=== PATIENT | male | born 1950 | race Caucasian/White ===

== ENCOUNTER 2024-11-16 12:41 | Inpatient (IN) | payer OTHER ==
[~2024-11-16] VITALS: Ht 188 cm; Wt 105.0 kg
[2024-11-16 13:00] VITALS: PULSE 78; RESP 22; O2SAT 93
[2024-11-16] MEDS: VANCOMYCIN 1GM/200ML PM 200 ML IV ONE (13:19)
--- NOTE | 2024-11-16 13:27 | DVH ---
CLINICAL INFORMATION: 74 years old, Male; syncope. TECHNIQUE: Axial imaging was obtained through the brain without contrast. Coronal and sagittal reform atted images were obtained, reviewed, and stored. Images were reviewed in brain and bone windows. Al l CT scans at this medical facility are performed using dose modulation techniques as appropriate to a performed exam including the following: Automated exposure control was utilized; adjustment of the MA and/or KV according to patient size; and use of iterative reconstruction technique. CTDIvol = 63.6 7 mGy DLP = 1125.99 mGy-cm COMPARISON: None FINDINGS: There is no acute intracranial hemorrhage. No mass effect or midline shift. Moderate to lar ge area of hypoattenuation in the anterior right frontal lobe, likely encephalomalacia. Scattered are as of hypoattenuation are seen in the periventricular and subcortical white matter, which are nonspec ific but most likely sequelae of small vessel ischemic disease. The ventricles and sulci are within n ormal limits in size for age. Basal cisterns are patent. Prominent calcification along the right side of the falx cerebri measuring up to 3.0 x 1.9 x 2.5 cm, possibly physiologic calcification. Calcifie d meningioma not excluded. The calvarium is unremarkable. Paranasal sinuses and mastoid air cells are clear. IMPRESSION: 1. No CT evidence of acute intracranial abnormality. 2. 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 Correlate with cl inical findings. 3. Prominent calcification along the right side of the falx cerebri, may be physiologic calcification . Calcified meningioma not excluded. Correlate with clinical findings. If clinically indicated, MRI without and with contrast could be obtained.
--- NOTE | 2024-11-16 13:34 | DVH ---
CHEST RADIOGRAPH Indication: syncope Technique: Single frontal view of the chest was obtained COMPARISON: None FINDINGS: Lines and Tubes: None Lungs: Clear Pleura: No effusion. No pneumothorax. Cardiomediastinal contours: Unremarkable Bones: Unremarkable IMPRESSION: No acute disease.
[2024-11-16 13:52] LABS: Hematocrit 35.5 % (41.0-53.0); Hemoglobin 12.1 g/dL (13.5-17.5); Mean Corpuscular Hemoglobin 30.9 pg (28.0-32.0); Mean Corpuscular Volume 90.4 fL (80.0-100.0); Nucleated Red Blood Cells % 0.0 %
[2024-11-16 14:03] LABS: Albumin 3.9 g/dL (3.2-4.8); Alkaline Phosphatase 78 U/L (46-116); Anion Gap 13 (5-15); BUN/Creatinine Ratio 23.1 (10.0-20.0); Calcium 9.9 mg/dL (8.7-10.4); Carbon Dioxide 21 mmol/L (20-31); Glucose 91 mg/dL (74-106); Potassium 3.5 mmol/L (3.5-5.1); Sodium 142 mmol/L (136-145); Total Protein 6.8 g/dL (5.7-8.2)
[2024-11-16 14:04] LABS: Alanine Aminotransferase < 9 U/L (7-40); Bilirubin, Total 0.8 mg/dL (0.2-1.0); Blood Urea Nitrogen 31 mg/dL (9-23); Chloride 108 mmol/L (98-107)
[2024-11-16 14:06] LABS: INR 1.43 (0.9-1.15); Partial Thromboplastin Time 35.0 SEC (24.5-34.5); Prothrombin Time 14.6 sec (9.3-11.8)
[2024-11-16] MEDS: CEFEPIME 1GM/ 50ML 50 ML IV ONE (14:25)
[2024-11-16 15:57] LABS: Urine Protein, UAD 1+ (Negative)
--- NOTE | 2024-11-16 16:21 | ED.PDOC ---
History of Present Illness HPI Comments 74-year-old male with a history of hypertension, diabetes, dyslipidemia, thyroid disease and BPH brought in by EMS from home for evaluation of generalized weakness. Family called because the patient had been sitting on the commode when he appeared pale, generally weak and stated he was dizzy. On arrival by E , the patient appeared diaphoretic with a blood pressure of 62/40. As they were assisting him onto their gurney, he had a brief syncopal episode without trauma, then spontaneously regained consciousness a few sec later. EMS administered 1 L of IV fluids, which improved the patient's blood pressure 122/70. Patient recently underwent a left knee surgery for which he had an indwelling Dalal catheter. Patient states the Dalal catheter was removed a week ago, however he has had dysuria. He denies any fever, nausea, vomiting, abdominal pain, hematuria or flank pain. Chief Complaint: Syncope Time Seen by MD: 12:45 Reviewed Notes: Nurses Notes, Forensic Toxicologist Notes Allergies: Coded Allergies: NO KNOWN ALLERGIES (Unverified , 11/16/24) Information Source: Patient, Emergency Med Personnel Mode of Arrival: EMS Past Medical History PAST MEDICAL HISTORY: DM, High Lipids, HTN, Thyroid Past Medical History (Other): BPH Surgical History (Other): Pertinent for recent left knee surgery Family History Family History: Reviewed,noncontributory to illness Social History Smoker: Non-Smoker Alcohol: Denies ETOH Use Drugs: Denies Drug Use Lives In: Home All Other Systems: Reviewed and Negative (Comprehensive systems review obtained and negative except for what is stated in the HPI.) Physical Exam General Appearance: No Apparent Distress HEENT: Other (Pupils and face symmetric. Moist mucous membranes.) Neck: Full Range of Motion, Normal Inspection Respiratory: Lungs Clear, No Accessory Muscle Use, No Respiratory Distress, Normal Breath Sounds Cardiovascular: No Edema, No JVD, Regular Rate/Rhythm Breast Exam: Deferred Gastrointestinal: Non Tender, Soft Genitalia: Deferred Pelvic: Deferred Rectal: Deferred Extremities: Normal range of motion, Non-tender, No pedal edema Neurologic: Alert (Oriented x4), Normal Affect, Normal Mood, Other (No gross focal deficit) Cerebellar Function: NOT DONE Reflexes: NOT DONE Skin: Dry, Pallor, Warm, Other (Left knee anterior midline feeling surgical wound with lotus in place. No erythema, tenderness, edema or discharge) Lymphatic: NOT DONE Was a procedure done? Was a procedure done?: No EKG EKG : Comments Sinus rhythm, rate 83, IN 203, normal QRS interval, QTC 499, left axis deviation, left anterior fascicular block, possible old inferior infarct, nonspecific T change. Differential Dx Considerations may include: Vasovagal, anemia, infection such as UTI, sepsis, electrolyte imbalance, hypovolemia/orthostasis, CVA, TIA, mi, arrhythmia, PE, among others X-Ray, Labs, Meds, VS Vital Signs Date Time Temp Pulse Resp B/P (MAP) Pulse Ox O2 Delivery O2 Flow Rate FiO2 11/16/24 16:00 76 12 133/64 (87) 95 11/16/24 15:00 79 11 134/67 (89) 94 11/16/24 13:00 97.6 78 22 133/65 (87) 93 97.6 11/16/24 13:00 78 22 93 Room Air* 0 21 11/16/24 12:46 97.5 79 18 126/72 (90) 94 97.5 Lab Test 11/16/24 16:40 11/16/24 13:30 11/16/24 13:23 Range/Units Troponin I High Sensitivity Pending 35 </=54 ng/L White Blood Count 10.7 4.4-10.8 10^3/uL Red Blood Count 3.93 L 4.5-5.90 10^6/uL Hemoglobin 12.1 L 13.5-17.5 g/dL Hematocrit 35.5 L 41.0-53.0 % Mean Corpuscular Volume 90.4 80.0-100.0 fL Mean Corpuscular Hemoglobin 30.9 28.0-32.0 pg Mean Corpuscular Hemoglobin Concent 34.1 32.0-36.0 g/dL Red Cell Distribution Width 14.4 H 11.8-14.3 % Platelet Count 415 140-450 10^3/uL Mean Platelet Volume 7.4 6.9-10.8 fL Neutrophils (%) (Auto) 81.2 H 37.0-80.0 % Lymphocytes (%) (Auto) 9.9 L 10.0-50.0 % Monocytes (%) (Auto) 6.0 0.0-12.0 % Eosinophils (%) (Auto) 2.4 0.0-7.0 % Basophils (%) (Auto) 0.5 0.0-2.0 % Neutrophils # (Auto) 8.7 H 1.6-8.6 10 ^3/uL Lymphocytes # (Auto) 1.1 0.4-5.4 10 ^3/uL Monocytes # (Auto) 0.6 0-1.3 10 ^3/uL Eosinophils # (Auto) 0.3 0-0.8 10 ^3/uL Basophils # (Auto) 0.1 0-0.2 10 ^3/uL Nucleated Red Blood Cells 0.0 % Prothrombin Time 14.6 H 9.3-11.8 sec Prothrombin Time INR 1.43 H 0.9-1.15 Activated Partial Thromboplast Time 35.0 H 24.5-34.5 SEC Sodium Level 142 136-145 mmol/L Potassium Level 3.5 3.5-5.1 mmol/L Chloride Level 108 H 98-107 mmol/L Carbon Dioxide Level 21 20-31 mmol/L Anion Gap 13 5-15 Blood Urea Nitrogen 31 H 9-23 mg/dL Creatinine 1.34 H 0.700-1.30 mg/dL Glomerular Filtration Rate Calc 55 >90 mL/min BUN/Creatinine Ratio 23.1 H 10.0-20.0 Serum Glucose 91 74-106 mg/dL Lactic Acid Level 1.4 0.4-2.0 mmol/L Calcium Level 9.9 8.7-10.4 mg/dL Total Bilirubin 0.8 0.2-1.0 mg/dL Aspartate Amino Transferase (AST) 16 13-40 U/L Alanine Aminotransferase (ALT) < 9 7-40 U/L Alkaline Phosphatase 78 46-116 U/L B-Type Natriuretic Peptide 50.61 0-100 pg/mL Total Protein 6.8 5.7-8.2 g/dL Albumin 3.9 3.2-4.8 g/dL Urine Color Light-yellow Yellow Urine Clarity Clear Clear Urine pH 6.5 5.0-9.0 Urine Specific [place] 1.015 1.001-1.035 Urine Protein 1+ H Negative Urine Ketones 1+ H Negative Urine Blood 1+ H Negative /uL Urine Nitrite Negative Negative Urine Bilirubin Negative Negative Urine Urobilinogen 3 H Negative mg/dL Urine Leukocyte Esterase 2+ Negative /uL Urine RBC 36 0 - 3 /hpf Urine Microscopic WBC 34 H 0-3 /HPF Urine Squamous Epithelial Cells Few <5 /hpf Urine Bacteria None seen None Seen /hpf Urine Hyaline Casts Few 0 - 2 /lpf Urine Mucus Few None Seen Urine Glucose 4+ H Normal mg/dL Current Medications Medications (Trade) Dose Ordered Sig/Binta Route Start Time Stop Time Status Last Admin Vancomycin HCl 200 ml @ 200 mls/hr ONCE ONCE IV 11/16/24 13:00 11/16/24 13:59 DC 11/16/24 13:29 Cefepime HCl 50 ml @ 50 mls/hr ONCE ONCE IV 11/16/24 13:45 11/16/24 14:44 DC 11/16/24 14:25 PROCEDURE(s): HWOCT - HEAD WITHOUT CONTRAST REASON: syncope ORDER NUMBER(s): [id number], ACCESSION NUMBER(s): [id number] CLINICAL INFORMATION: 74 years old, Male; syncope. TECHNIQUE: Axial imaging was obtained through the brain without contrast. Coronal and sagittal reformatted images were obtained, reviewed, and stored. Images were reviewed in brain and bone windows. All CT scans at this medical facility are performed using dose modulation techniques as appropriate to a performed exam including the following: Automated exposure control was utilized; adjustment of the MA and/or KV according to patient size; and use of iterative reconstruction technique. CTDIvol = 63.67 mGy DLP = 1125.99 mGy-cm COMPARISON: None FINDINGS: There is no acute intracranial hemorrhage. No mass effect or midline shift. Moderate to large area of hypoattenuation in the anterior right frontal lobe, likely encephalomalacia. Scattered areas of hypoattenuation are seen in the periventricular and subcortical white matter, which are nonspecific but most likely sequelae of small vessel ischemic disease. The ventricles and sulci are within normal limits in size for age. Basal cisterns are patent. Prominent calcification along the right side of the falx cerebri measuring up to 3.0 x 1.9 x 2.5 cm, possibly physiologic calcification. Calcified meningioma not excluded. The calvarium is unremarkable. Paranasal sinuses and mastoid air cells are clear. IMPRESSION: 1. No CT evidence of acute intracranial abnormality. 2. 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 Correlate with clinical findings. 3. Prominent calcification along the right side of the falx cerebri, may be physiologic calcification. Calcified meningioma not excluded. Correlate with clinical findings. If clinically indicated, MRI without and with contrast could be obtained. EDURE(s): CXRP - CHEST PORTABLE REASON: syncope ORDER NUMBER(s): [id number], ACCESSION NUMBER(s): [id number] CHEST RADIOGRAPH Indication: syncope Technique: Single frontal view of the chest was obtained COMPARISON: None FINDINGS: Lines and Tubes: None Lungs: Clear Pleura: No effusion. No pneumothorax. Cardiomediastinal contours: Unremarkable Bones: Unremarkable IMPRESSION: No acute disease. X-Ray, Labs, Meds, VS Comment 74-year-old male with a history of hypertension, diabetes, dyslipidemia, thyroid disease, BPH, recent left knee surgery brought in by EMS from home for evaluation of generalized weakness and a brief syncopal episode Vitals remarkable for oxygen saturation 94% on room air Exam unremarkable Rhythm strip independently interpreted by me: Sinus rhythm, rate 79, no ectopy. CT head IMPRESSION: 1. No CT evidence of acute intracranial abnormality. 2. 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 Correlate with clinical findings. 3. Prominent calcification along the right side of the falx cerebri, may be physiologic calcification. Calcified meningioma not excluded. Correlate with clinical findings. If clinically indicated, MRI without and with contrast could be obtained. Chest x-ray no acute disease CBC unremarkable, metabolic panel remarkable for BUN 31, creatinine 1.34, BNP and serial troponins negative, lactate normal, UA abnormal consistent with UTI Patient treated with the following in the ED: Vancomycin per pharmacy IV, cefepime 2 g IV On re-evaluation, patient is resting comfortably with stable vitals. There have been no new neurologic changes during his stay. Plan is to admit the patient for IV antibiotics and neuro evaluation. Time of 1ST Reevaluation: 16:00 Reevaluation 1ST: Improved Patient Education/Counseling: Diagnosis, Treatment Family Education/Counseling: No Family Present SEPSIS Sepsis Screen Date sepsis recognized/suspect: Nov 16, 2024 Time Sepsis recognized/suspect: 1246 Recent Procedure: Yes On Antibiotic Therapy: Yes Respiratory Rate >20: No Heart Rate >90: No Temp<36 C (96.8 F) or >38.3 C: No SBP <90 or MAP <65 mmHG: No New Acute Mental Status Change: No Is the patient on CPAP, BIPAP,: No SEPSIS EXCLUSION NOTE: Sepsis Exclusion Note: Patient presents with SIRS criteria, but the SIRS response is attributed to [ UTI, hypovolemia]. Sepsis bundle is not initiated at this time, due to this reason. Further management will focus on the treatment of the above condition (s). Physician Orders Chest Portable (11/16/24 13:00) Accucheck (11/16/24 12:46) Blood Culture (11/16/24 12:46) Cefepime 1gm/ 50ml (Maxipime 1gm/50ml) (11/16/24 22:00) Notify Md If Map <65 Or Bp<90 (11/16/24 12:46) If Map<65 Start Vasopressor (11/16/24 12:46) Sepsis Reassesment After Fluid (11/16/24 13:46) Head Without Contrast (11/16/24 12:57) Troponin-I Hs (11/16/24 15:57) Electrocardigram (11/16/24 16:13) Vital Signs Date Time Temp Pulse Resp B/P (MAP) Pulse Ox O2 Delivery O2 Flow Rate FiO2 11/16/24 16:00 76 12 133/64 (87) 95 11/16/24 15:00 79 11 134/67 (89) 94 11/16/24 13:00 97.6 78 22 133/65 (87) 93 97.6 11/16/24 13:00 78 22 93 Room Air* 0 21 11/16/24 12:46 97.5 79 18 126/72 (90) 94 97.5 Laboratory Tests Test 11/16/24 13:30 Lactic Acid Level 1.4 mmol/L (0.4-2.0) White Blood Count 10.7 10^3/uL (4.4-10.8) Medications Medications Dose Ordered Sig/Binta Route Start Time Stop Time Status Last Admin Dose Admin Cefepime HCl 50 ml @ 50 mls/hr ONCE ONCE IV 11/16/24 13:45 11/16/24 14:44 DC 11/16/24 14:25 Vancomycin HCl 200 ml @ 200 mls/hr ONCE ONCE IV 11/16/24 13:00 11/16/24 13:59 DC 11/16/24 13:29 Departure 1 Departure Time of Disposition: 16:20 Impression: Primary Impression: Syncope Additional Impression: UTI (urinary tract infection) Disposition: ADMITTED INPATIENT Admit to: Tele Condition: Guarded Critical Care Note Critical Care Time?: No Stability Stability form required: No Heart Score Heart Score: Heart Score Response (Comments) Value History N/A 0 EKG N/A 0 Age N/A 0 Risk Factors N/A 0 Troponin N/A 0 Total 0 NIRALI CALERO MD Nov 16, 2024 16:21
[2024-11-16] MEDS: HYDROcodone-ACET 5/325MG TAB PO ONE (18:20)
[2024-11-16] MEDS: PHENAZOPYRIDINE HCL 100 MG TAB PO ONE (18:21)
--- NOTE | 2024-11-16 19:14 | ECG ---
[facility] Test Date: 2024-11-16 Test Time: 16:44:29 Pat Name: BOUCHRA AREVALO Department: ED Room: [facility] Gender: M Microbiological Analyst: LEXX : 1950 Requested By: NIRALI PATTON Order Number: [id number] Reading MD: Ian Antony Measurements Intervals [place] Rate: 83 P: 58 NH: 203 QRS: -48 QRSD: 113 T: 14 QT: 424 QTc: 499 Interpretive Statements Sinus rhythm Left anterior fascicular block Low voltage, precordial leads Abnormal R-wave progression, late transition Borderline prolonged QT interval Baseline wander in lead(s) V3,V4,V5,V6 Electronically Signed On 11-23-2024 15:31:59 PDT by Ian Antony Please click the below link to view image of tracing.
[2024-11-16] MEDS ORDERED: DEXTROSE (50%) 50ML SYRG IV PRN (19:15)
[2024-11-16 20:03] VITALS: PULSE 88; RESP 22; O2SAT 98
[2024-11-16 21:19] VITALS: BP 155/84; PULSE 89; RESP 18; RESP 20; TEMP 97.6; O2SAT 94
--- NOTE | 2024-11-16 21:55 | DVHHP2 ---
History of Present Illness Reason for Visit: Dizziness History of Present Illness 74-year-old male presents for evaluation of dizziness. Patient reports developing dizziness while using the restroom today in the morning. When he tried to stand up he felt dizzy so he said down again and his called EMS. Patient had a blood pressure in the 60s in the field. After bolus of normal saline his blood pressure normalized to the 120s. Currently he denies dizziness, shortness for breath or chest pain. No fever or chills. No dysuria or hematuria. Past Medical History Hypertension, thyroid, dyslipidemia, diabetes mellitus, BPH Past Surgical History Left knee surgery Family History Noncontributory Smoke: No ALCOHOL: none Drugs: None Lives: with Family Review of Systems Review of Systems Review of systems are currently negative otherwise addressed in HPI. Allergies: Coded Allergies: NO KNOWN ALLERGIES (Unverified , 11/16/24) Medications Current Medications Medications Dose Ordered Sig/Binta Route Start Time Stop Time Status Last Admin Dose Admin Phenazopyridine HCl 100 mg BID PO 11/17/24 10:00 Ceftriaxone Sodium 50 ml @ 100 mls/hr DAILY@09 IV 11/17/24 09:00 Diagnostic Test (Pha) 1 strip ACHS 11/16/24 22:00 Insulin Human Regular ACHS SC 11/16/24 22:00 Dextrose 50 ml UD PRN IV 11/16/24 19:15 Ondansetron HCl 4 mg Q4HP PRN IV 11/16/24 19:15 Acetaminophen 650 mg Q6HP PRN PO 11/16/24 19:15 Rivaroxaban 10 mg DAILY PO 11/17/24 10:00 Levothyroxine Sodium 50 mcg QAM@0600 PO 11/17/24 06:00 Atorvastatin Calcium 40 mg HS PO 11/16/24 22:00 Amlodipine Besylate 10 mg DAILY PO 11/17/24 10:00 Exam Vital Signs Vital Signs Date Time Temp Pulse Resp B/P (MAP) Pulse Ox O2 Delivery O2 Flow Rate FiO2 11/16/24 20:08 142/86 (104) 11/16/24 20:03 88 22 98 Room Air* 0 21 11/16/24 19:51 98.1 98.1 Exam Gen: 74-year-old male in mild distress Skin: Warm, dry, normal color and texture, no rash. HEENT: Normocephalic atraumatic, mucous membranes moist and pink. Neck: Cervical and supraclavicular nodes normal without enlargement, trachea is midline, thyroid gland is normal without masses. Pulmonary: Clear to auscultation and percussion bilaterally. Cardiac: Regular rate and rhythm. No murmur Abdomen: Soft, nontender, nondistended, bowel sounds present all 4 quadrants, no guarding, no rigidity, no organomegaly. Extremities: No cyanosis, clubbing, no edema Neuro: Cranial nerves II through XII grossly intact, normal affect and speech, no focal motor deficits. Labs/Xrays ORDERING PHYSICIAN: NIRALI CALERO MD PROCEDURE(s): HWOCT - HEAD WITHOUT CONTRAST REASON: syncope ORDER NUMBER(s): [id number], ACCESSION NUMBER(s): [id number] CLINICAL INFORMATION: 74 years old, Male; syncope. TECHNIQUE: Axial imaging was obtained through the brain without contrast. Coronal and sagittal reformatted images were obtained, reviewed, and stored. Images were reviewed in brain and bone windows. All CT scans at this medical facility are performed using dose modulation techniques as appropriate to a performed exam including the following: Automated exposure control was utilized; adjustment of the MA and/or KV according to patient size; and use of iterative reconstruction technique. CTDIvol = 63.67 mGy DLP = 1125.99 mGy-cm COMPARISON: None FINDINGS: There is no acute intracranial hemorrhage. No mass effect or midline shift. Moderate to large area of hypoattenuation in the anterior right frontal lobe, likely encephalomalacia. Scattered areas of hypoattenuation are seen in the periventricular and subcortical white matter, which are nonspecific but most likely sequelae of small vessel ischemic disease. The ventricles and sulci are within normal limits in size for age. Basal cisterns are patent. Prominent calcification along the right side of the falx cerebri measuring up to 3.0 x 1.9 x 2.5 cm, possibly physiologic calcification. Calcified meningioma not excluded. The calvarium is unremarkable. Paranasal sinuses and mastoid air cells are clear. IMPRESSION: 1. No CT evidence of acute intracranial abnormality. 2. 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 Correlate with clinical findings. 3. Prominent calcification along the right side of the falx cerebri, may be physiologic calcification. Calcified meningioma not excluded. Correlate with clinical findings. If clinically indicated, MRI without and with contrast could be obtained. RING PHYSICIAN: NIRALI CALERO MD PROCEDURE(s): CXRP - CHEST PORTABLE REASON: syncope ORDER NUMBER(s): [id number], ACCESSION NUMBER(s): [id number] CHEST RADIOGRAPH Indication: syncope Technique: Single frontal view of the chest was obtained COMPARISON: None FINDINGS: Lines and Tubes: None Lungs: Clear Pleura: No effusion. No pneumothorax. Cardiomediastinal contours: Unremarkable Bones: Unremarkable IMPRESSION: No acute disease. Labs Test 11/16/24 20:46 11/16/24 16:40 11/16/24 13:30 11/16/24 13:23 Range/Units POC Glucose 80 70-106 mg/dl Troponin I High Sensitivity 27 </=54 ng/L White Blood Count 10.7 4.4-10.8 10^3/uL Red Blood Count 3.93 L 4.5-5.90 10^6/uL Hemoglobin 12.1 L 13.5-17.5 g/dL Hematocrit 35.5 L 41.0-53.0 % Mean Corpuscular Volume 90.4 80.0-100.0 fL Mean Corpuscular Hemoglobin 30.9 28.0-32.0 pg Mean Corpuscular Hemoglobin Concent 34.1 32.0-36.0 g/dL Red Cell Distribution Width 14.4 H 11.8-14.3 % Platelet Count 415 140-450 10^3/uL Mean Platelet Volume 7.4 6.9-10.8 fL Neutrophils (%) (Auto) 81.2 H 37.0-80.0 % Lymphocytes (%) (Auto) 9.9 L 10.0-50.0 % Monocytes (%) (Auto) 6.0 0.0-12.0 % Eosinophils (%) (Auto) 2.4 0.0-7.0 % Basophils (%) (Auto) 0.5 0.0-2.0 % Neutrophils # (Auto) 8.7 H 1.6-8.6 10 ^3/uL Lymphocytes # (Auto) 1.1 0.4-5.4 10 ^3/uL Monocytes # (Auto) 0.6 0-1.3 10 ^3/uL Eosinophils # (Auto) 0.3 0-0.8 10 ^3/uL Basophils # (Auto) 0.1 0-0.2 10 ^3/uL Nucleated Red Blood Cells 0.0 % Prothrombin Time 14.6 H 9.3-11.8 sec Prothrombin Time INR 1.43 H 0.9-1.15 Activated Partial Thromboplast Time 35.0 H 24.5-34.5 SEC Sodium Level 142 136-145 mmol/L Potassium Level 3.5 3.5-5.1 mmol/L Chloride Level 108 H 98-107 mmol/L Carbon Dioxide Level 21 20-31 mmol/L Anion Gap 13 5-15 Blood Urea Nitrogen 31 H 9-23 mg/dL Creatinine 1.34 H 0.700-1.30 mg/dL Glomerular Filtration Rate Calc 55 >90 mL/min BUN/Creatinine Ratio 23.1 H 10.0-20.0 Serum Glucose 91 74-106 mg/dL Lactic Acid Level 1.4 0.4-2.0 mmol/L Calcium Level 9.9 8.7-10.4 mg/dL Total Bilirubin 0.8 0.2-1.0 mg/dL Aspartate Amino Transferase (AST) 16 13-40 U/L Alanine Aminotransferase (ALT) < 9 7-40 U/L Alkaline Phosphatase 78 46-116 U/L B-Type Natriuretic Peptide 50.61 0-100 pg/mL Total Protein 6.8 5.7-8.2 g/dL Albumin 3.9 3.2-4.8 g/dL Urine Color Light-yellow Yellow Urine Clarity Clear Clear Urine pH 6.5 5.0-9.0 Urine Specific [place] 1.015 1.001-1.035 Urine Protein 1+ H Negative Urine Ketones 1+ H Negative Urine Blood 1+ H Negative /uL Urine Nitrite Negative Negative Urine Bilirubin Negative Negative Urine Urobilinogen 3 H Negative mg/dL Urine Leukocyte Esterase 2+ Negative /uL Urine RBC 36 0 - 3 /hpf Urine Microscopic WBC 34 H 0-3 /HPF Urine Squamous Epithelial Cells Few <5 /hpf Urine Bacteria None seen None Seen /hpf Urine Hyaline Casts Few 0 - 2 /lpf Urine Mucus Few None Seen Urine Glucose 4+ H Normal mg/dL SEPSIS Sepsis Screen Date sepsis recognized/suspect: Nov 16, 2024 Time Sepsis recognized/suspect: 2006 Recent Procedure: No On Antibiotic Therapy: No Respiratory Rate >20: No Heart Rate >90: No Temp<36 C (96.8 F) or >38.3 C: No SBP <90 or MAP <65 mmHG: No New Acute Mental Status Change: No Is the patient on CPAP, BIPAP,: No Physician Orders Ceftriaxone 1gm/50ml D5w (Rocephin) (11/17/24 09:00) Basic Metabolic Panel (11/17/24 04:00) Glucose Blood (Accu-Chek Comfort Curve T (11/16/24 22:00) Insulin R (Human) (Insulin R) (11/16/24 22:00) Dextrose 50% Syringe (11/16/24 19:15) Admit (11/16/24 19:04) Ondansetron Hcl (Zofran) (11/16/24 19:15) Complete Blood Count (11/17/24 04:00) Cardiac Diet-2gna,Lofat,Lochol (11/17/24 Breakfast) Condition: Stable (11/16/24 19:04) Acetaminophen Tablet (Tylenol Tablet) (11/16/24 19:15) Bedrest With Bathroom Privileg (11/16/24 19:04) Urine Bacterial Culture (11/16/24 19:04) Rivaroxaban Tablet (Xarelto Tablet) (11/17/24 10:00) Levothyroxine Tablet (Synthroid Tablet) (11/17/24 06:00) Atorvastatin (Lipitor) (11/16/24 22:00) Phenazopyridine Hcl Tablet (Pyridium Tab (11/17/24 10:00) Amlodipine Tablet (Norvasc Tablet) (11/17/24 10:00) Vital Signs Date Time Temp Pulse Resp B/P (MAP) Pulse Ox O2 Delivery O2 Flow Rate FiO2 11/16/24 20:08 142/86 (104) 11/16/24 20:03 88 22 98 Room Air* 0 21 11/16/24 19:51 98.1 88 20 167/105 (125) 98.1 11/16/24 18:00 76 13 141/72 (95) 95 11/16/24 16:44 83 11/16/24 16:00 76 12 133/64 (87) 95 11/16/24 15:00 79 11 134/67 (89) 94 Laboratory Tests Test 11/16/24 13:30 Lactic Acid Level 1.4 mmol/L (0.4-2.0) White Blood Count 10.7 10^3/uL (4.4-10.8) Medications Medications Dose Ordered Sig/Binta Route Start Time Stop Time Status Last Admin Dose Admin Acetaminophen/ Hydrocodone Bitart 1 tab ONCE ONCE PO 11/16/24 18:30 11/16/24 18:31 DC 11/16/24 18:20 1 TAB Cefepime HCl 50 ml @ 50 mls/hr ONCE ONCE IV 11/16/24 13:45 11/16/24 14:44 DC 11/16/24 14:25 50 MLS/HR Phenazopyridine HCl 200 mg ONCE ONCE PO 11/16/24 18:30 11/16/24 18:31 DC 11/16/24 18:21 200 MG Vancomycin HCl 200 ml @ 200 mls/hr ONCE ONCE IV 11/16/24 13:00 11/16/24 13:59 DC 11/16/24 13:29 200 MLS/HR Assessment/Plan Assessment/Plan Assessment Symptomatic hypotension Urinary tract infection Diabetes mellitus Plan Admit the patient to [facility] to the hospitalist Hold antihypertensives Resume rest of medications from home Urine bacterial culture pending Rocephin Continue treatment per orders. Plan discussed with: Patient My Orders Orders - KELLY PURCELL AGACNP Procedure Category Date Status Time Ceftriaxone 1gm/50ml PHA 11/17/24 In Process D5w (Rocephin) 09:00 Basic Metabolic Panel LAB 11/17/24 Verified 04:00 Glucose Blood PHA 11/16/24 In Process (Accu-Chek Comfort 22:00 Insulin R (Human) PHA 11/16/24 In Process (Insulin R) 22:00 Dextrose 50% Syringe PHA 11/16/24 In Process 19:15 Admit ADMIT 11/16/24 Transmitted 19:04 Ondansetron Hcl PHA 11/16/24 In Process (Zofran) 19:15 Complete Blood Count LAB 11/17/24 Verified 04:00 Cardiac DIET 11/17/24 Transmitted Diet-2gna,Lofat,Lochol Breakfast Condition: Stable CHETNA 11/16/24 In Process 19:04 Acetaminophen Tablet PHA 11/16/24 In Process (Tylenol Tablet) 19:15 Bedrest With Bathroom CHETNA 11/16/24 In Process Privileg 19:04 Urine Bacterial LAUREN 11/16/24 In Process Culture 19:04 Rivaroxaban Tablet PHA 11/17/24 In Process (Xarelto Tablet) 10:00 Levothyroxine Tablet PHA 11/17/24 In Process (Synthroid Tablet) 06:00 Atorvastatin (Lipitor) PHA 11/16/24 In Process 22:00 Phenazopyridine Hcl PHA 11/17/24 In Process Tablet (Pyridium Tab 10:00 Amlodipine Tablet PHA 11/17/24 In Process (Norvasc Tablet) 10:00 Date of Service: Nov 16, 2024 Billing Provider: KELLY PURCELL Common Visit Codes: [id number] INP/OBS CARE (HIGH) KELLY PURCELL Nov 16, 2024 21:55
[2024-11-16] MEDS: InsuLIN REG 1unit/0.01ml Soln (100units/ml) SC SCH (22:00)
[2024-11-16] MEDS ORDERED: CEFEPIME 1GM/ 50ML 50 ML IV SCH (22:00)
[2024-11-16] MEDS: ACCU-CHEK COMFORT CURVE STRIP VI SCH (23:12)
[2024-11-16] MEDS ORDERED: ACET-1304 PO (23:25)
[2024-11-16] MEDS ORDERED: LEVO25TA2 PO (23:25)
[2024-11-16] MEDS ORDERED: LISI2.5T47 PO (23:25)
[2024-11-16] MEDS ORDERED: ATOR20TA50 PO (23:25)
[2024-11-16] MEDS: ACETAMINOPHEN 325 MG TAB PO PRN (23:56)
[2024-11-16] MEDS: ATORVASTATIN 20 MG TAB PO SCH (23:56)
[2024-11-17] VITALS (9 sets, daily range): BP systolic 69–162; BP diastolic 49–104; PULSE 61–138; RESP 14–20; TEMP 97.5–99.1; O2SAT 84–96
[2024-11-17] MEDS: LEVOTHYROXINE SODIUM 50 MCG TAB PO SCH (05:58)
[2024-11-17 06:25] LABS: Potassium 3.6 mmol/L (3.5-5.1); Sodium 143 mmol/L (136-145)
[2024-11-17 06:26] LABS: Anion Gap 15 (5-15)
[2024-11-17 06:27] LABS: Calcium 10.0 mg/dL (8.7-10.4)
[2024-11-17 06:29] LABS: Hematocrit 37.9 % (41.0-53.0); Hemoglobin 12.3 g/dL (13.5-17.5); Mean Corpuscular Hemoglobin 29.5 pg (28.0-32.0); Mean Corpuscular Volume 91.2 fL (80.0-100.0); Nucleated Red Blood Cells % 0.0 %
[2024-11-17 06:31] LABS: BUN/Creatinine Ratio 21.5 (10.0-20.0)
[2024-11-17 06:34] LABS: Blood Urea Nitrogen 26 mg/dL (9-23); Carbon Dioxide 19 mmol/L (20-31); Chloride 109 mmol/L (98-107)
[2024-11-17 07:02] LABS: Glucose 80 mg/dL (74-106)
[2024-11-17] MEDS: PHENAZOPYRIDINE HCL 100 MG TAB PO SCH (08:42)
[2024-11-17] MEDS: RIVAROXABAN 10 MG TAB PO SCH (08:42)
[2024-11-17] MEDS: cefTRIAXone 1GM/50ML D5W 50 ML IV SCH (08:44)
--- NOTE | 2024-11-17 09:33 | DVHPNRES ---
Progress Note Date Seen: Nov 17, 2024 Resident Creating Document: TASHI ALCARAZ RESIDENT Medical Necessity Reason Pt with a Central, PICC or Fol: Yes The following are medically ne: Dalal Catheter Subjective Review of Systems Diogo Hurton this is a 74-year-old male with past medical history of diabetes mellitus, hypertension, left knee replacement, history of polio as a child. He came to the emergency department with a chief complaint of dizziness and loss of consciousness. Yesterday in the morning when he went to the bathroom he started feeling dizzy. He complains everything around him looked hazy. In the restroom he felt more dizzy and EMT was called. He lost consciousness eventually and can not remember the episode clearly. Last week he reports undergoing left knee replacement for pain due to osteoarthritis. He reports, in a comprehensive cardiac evaluation done before the surgery showed atherosclerotic stenosis in one of the coronary arteries. A urinary catheter was left in place. He started experiencing burning micturition 2 days ago. No associated fever, nausea, vomiting, pain. He has constipation on and off for which he uses laxatives. He also has urge incontinence, which progressed to incontinence with this episode of UTI. His vitals show increased respiratory rate. Past history: Polio as a child leading to right hand tremor and incoordination. Tried burning himself and got 2nd grade lim when he was in 8th grade. Past surgical history: Cataract bilaterally, lens replacement surgery. Knee replacement surgery for osteoarthritis. Personal history occasional alcohol use. Lives in mobile house with . Family history: Cancer-grandmothers with liver, bone, leukemia. Hypertension, dementia in mother. ROS: Constitutional: Denies weight loss, fever and chills. HEENT: Denies changes in vision and hearing. Respiratory: Denies shortness of breath and cough Cardiovascular: Denies chest discomfort or palpitations GI: Constipation off and on. Denies abdominal pain, nausea, vomiting and diarrhea. : Burning micturition, incontinence. Musculoskeletal: Denies myalgias and joint pain Skin: Denies rash and pruritus. Neurological: Dizziness, loss of consciousness Objective vital signs Vital Sign Date Time Temp Pulse Resp B/P (MAP) Pulse Ox O2 Delivery O2 Flow Rate FiO2 11/17/24 05:00 97.5 97 19 131/78 (95) 94 97.5 11/16/24 21:19 Room Air* 0 21 Total Intake and Output 11/16/24 11/16/24 11/17/24 15:00 23:00 07:00 Intake Total 200 ml 50 ml 200 ml Balance 200 ml 50 ml 200 ml medications Current Medications Medications Dose Ordered Sig/Binta Route Start Time Stop Time Status Last Admin Dose Admin Phenazopyridine HCl 100 mg BID PO 11/17/24 10:00 11/17/24 08:42 100 MG Ceftriaxone Sodium 50 ml @ 100 mls/hr DAILY@09 IV 11/17/24 09:00 11/17/24 08:44 100 MLS/HR Diagnostic Test (Pha) 1 strip ACHS 11/16/24 22:00 11/17/24 05:58 1 STRIP Insulin Human Regular ACHS SC 11/16/24 22:00 Dextrose 50 ml UD PRN IV 11/16/24 19:15 Ondansetron HCl 4 mg Q4HP PRN IV 11/16/24 19:15 Acetaminophen 650 mg Q6HP PRN PO 11/16/24 19:15 11/16/24 23:56 650 MG Rivaroxaban 10 mg DAILY PO 11/17/24 10:00 11/17/24 08:42 10 MG Levothyroxine Sodium 50 mcg QAM@0600 PO 11/17/24 06:00 11/17/24 05:58 50 MCG Atorvastatin Calcium 40 mg HS PO 11/16/24 22:00 11/16/24 23:56 40 MG Amlodipine Besylate 10 mg DAILY PO 11/17/24 10:00 Examination General: Patient alert and oriented in person, place and time. Patient following commands. HEENT: Normocephalic, atraumatic, moist mucous membranes Respiratory/pulmonary: Clear lungs bilaterally, vesicular murmurs present in almost all lung arroyo, no associated crackles or wheezes. Cardiovascular: Normal heart sounds S1 and S2 with no associated murmurs Abdomen: Liver palpable below the costal margin. No palpable masses. Extremities: Left knee- stitches from knee replacement surgery. Surgical incision site clean, dry, no sign of infection. Peripheral Pulses: 3+ Radial (R). 3+ Radial (L). 3+ Dorsalis pedis (R). 3+ Dorsalis pedis(L) Skin: No rashes or pruritus, there is no sacral edema present at this time. Neurological: Right hand tremor. Power normal. : Dalal catheter in place, draining dark colored urine. laboratory and microbiology Laboratory Tests 11/17/24 05:45 Test 11/17/24 05:45 Range/Units Serum Glucose 80 74-106 mg/dL Problem List/Assessment/Plan Problem List/Assessment/Plan #Syncopal episode due to below #Postural hypotension #Orthostatic hypotension possible #Iatrogenic hypotension #Postural orthostasis -Troponins negative -CT head shows encephalomalacia in the right frontal lobe, may be sequelae of chronic infarct. Correlate with clinical findings. Prominent calcification along the right side of the falx cerebri, may be physiologic calcification. Calcified meningioma not excluded. Correlate with clinical findings. If clinically indicated, MRI without and with contrast could be obtained. -Chest x-ray WNL -EKG shows: Left anterior fascicular block, abnormal R-wave progression, borderline prolonged QT interval -Orthostatic vitals:- Lying down 148/80 Sitting 107/75 Standing 69/49 -Start IV fluids. Amlodipine held, targeting SBP 150 #Ruling out arrhythmia -Patient is started on tele -We will do echo to rule out structural causes #Possible hypotension due to acute complicated cystitis -U/a shows: WBC 36, U. glucose, protein, ketone, blood 1+ -Increased BUN, BUN-creatinine ratio -Continue IV ceftriaxone -Continue Zofran #Hypertension #Hypothyroidism -Taking levothyroxine -Targeting SBP 150 in context of orthostatic hypotension #BPH #Diabetes mellitus -We will continue holding Farxiga -Started on sliding scale insulin Goals of care discussed with the patient at bedside for more than 35 minute Full code Plan discussed with Dr. Terrazas Plan discussed with: Patient TASHI ALCARAZ RESIDENT Nov 17, 2024 09:33
[2024-11-17] MEDS: LACTATED RINGER'S 1,000 ML IV SCH (12:45)
[2024-11-17] MEDS: LACTATED RINGER'S 1,000 ML IV ONE (15:08)
[2024-11-17] MEDS ORDERED: NYSTATIN TOPICAL POWDER 15GM TOP SCH (22:00)
[2024-11-18 00:47] VITALS: BP 115/83; PULSE 88; RESP 17; TEMP 98.4; O2SAT 91
[2024-11-18 05:00] VITALS: BP_SYST 115; BP_SYST 149; BP_SYST 166; BP_DIAS 63; BP_DIAS 83; BP_DIAS 87; PULSE 95; RESP 18; TEMP 97.6; O2SAT 95
[2024-11-18 07:22] LABS: Hematocrit 34.7 % (41.0-53.0); Hemoglobin 11.9 g/dL (13.5-17.5); Mean Corpuscular Hemoglobin 30.9 pg (28.0-32.0); Mean Corpuscular Volume 90.1 fL (80.0-100.0); Nucleated Red Blood Cells % 0.0 %
[2024-11-18 07:40] LABS: Albumin 3.9 g/dL (3.2-4.8); Alkaline Phosphatase 80 U/L (46-116); Anion Gap 15 (5-15); BUN/Creatinine Ratio 20.8 (10.0-20.0); Bilirubin, Total 0.9 mg/dL (0.2-1.0); Blood Urea Nitrogen 21 mg/dL (9-23); Calcium 10.1 mg/dL (8.7-10.4); Glucose 79 mg/dL (74-106); Sodium 143 mmol/L (136-145); Total Protein 6.7 g/dL (5.7-8.2)
[2024-11-18 07:50] LABS: Alanine Aminotransferase < 9 U/L (7-40); Carbon Dioxide 19 mmol/L (20-31); Chloride 109 mmol/L (98-107); Potassium 3.1 mmol/L (3.5-5.1)
[2024-11-18] MEDS: ONDANSETRON HCL 4 MG/2 ML VIAL IV PRN (08:23)
[2024-11-18] MEDS: POTASSIUM EFFERVESENT TAB 25 MEQ PO ONE (08:45)
[2024-11-18 09:00] VITALS: BP_SYST 127; BP_SYST 154; BP_DIAS 69; BP_DIAS 84; PULSE 74; PULSE 81; RESP 18; RESP 20; TEMP 98.7; O2SAT 94
[2024-11-18 13:00] VITALS: BP 130/79; PULSE 91; RESP 18; TEMP 98.2; O2SAT 94
[2024-11-18] MEDS ORDERED: CEPH500T PO (14:22)
[2024-11-18 17:00] VITALS: BP_SYST 154; BP_SYST 99; BP_DIAS 44; BP_DIAS 79; PULSE 66; PULSE 70; RESP 20; TEMP 97.8; TEMP 98.6; O2SAT 90; O2SAT 96
--- NOTE | 2024-11-18 17:23 | DVHPNRES ---
Progress Note Date Seen: Nov 18, 2024 Resident Creating Document: TASHI ALCARAZ RESIDENT Medical Necessity Reason Pt with a Central, PICC or Fol: Yes The following are medically ne: Dalal Catheter Subjective Review of Systems [place] Bonnyman this is a 74-year-old male with past medical history of diabetes mellitus, hypertension, left knee replacement, history of polio as a child. He came to the emergency department with a chief complaint of dizziness and loss of consciousness. Yesterday in the morning when he went to the bathroom he started feeling dizzy. He complains everything around him looked hazy. In the restroom he felt more dizzy and EMT was called. He lost consciousness eventually and can not remember the episode clearly. Last week he reports undergoing left knee replacement for pain due to osteoarthritis. He reports, in a comprehensive cardiac evaluation done before the surgery showed atherosclerotic stenosis in one of the coronary arteries. A urinary catheter was left in place. He started experiencing burning micturition 2 days ago. No associated fever, nausea, vomiting, pain. He has constipation on and off for which he uses laxatives. He also has urge incontinence, which progressed to incontinence with this episode of UTI. His vitals show increased respiratory rate. Past history: Polio as a child leading to right hand tremor and incoordination. Tried burning himself and got 2nd grade lim when he was in 8th grade. Past surgical history: Cataract bilaterally, lens replacement surgery. Knee replacement surgery for osteoarthritis. Personal history occasional alcohol use. Lives in mobile house with . Family history: Cancer-grandmothers with liver, bone, leukemia. Hypertension, dementia in mother. 11/18/24: Patient examined at bedside today. He had an episode of dizziness when giving orthostatic vitals. Today his orthostatic vitals are positive for orthostatic hypotension. We will continue to evaluate and manage him. ROS: Constitutional: Denies weight loss, fever and chills. HEENT: Denies changes in vision and hearing. Respiratory: Denies shortness of breath and cough Cardiovascular: Denies chest discomfort or palpitations GI: Constipation off and on. Denies abdominal pain, nausea, vomiting and diarrhea. : Burning micturition, incontinence. Musculoskeletal: Denies myalgias and joint pain Skin: Denies rash and pruritus. Neurological: Dizziness, loss of consciousness Objective vital signs Vital Sign Date Time Temp Pulse Resp B/P (MAP) Pulse Ox O2 Delivery O2 Flow Rate FiO2 11/18/24 17:00 97.8 66 20 154/79 (104) 96 97.8 11/18/24 07:52 Room Air* 0 21 Total Intake and Output 11/17/24 11/17/24 11/18/24 15:00 23:00 07:00 Intake Total 50 ml 650 ml Output Total 1300 ml Balance 50 ml -650 ml medications Current Medications Medications Dose Ordered Sig/Binta Route Start Time Stop Time Status Last Admin Dose Admin Phenazopyridine HCl 100 mg BID PO 11/17/24 10:00 11/18/24 08:22 100 MG Ceftriaxone Sodium 50 ml @ 100 mls/hr DAILY@09 IV 11/17/24 09:00 11/18/24 08:23 100 MLS/HR Diagnostic Test (Pha) 1 strip ACHS 11/16/24 22:00 11/18/24 11:56 1 STRIP Insulin Human Regular ACHS SC 11/16/24 22:00 Dextrose 50 ml UD PRN IV 11/16/24 19:15 Ondansetron HCl 4 mg Q4HP PRN IV 11/16/24 19:15 11/18/24 08:23 4 MG Acetaminophen 650 mg Q6HP PRN PO 11/16/24 19:15 11/16/24 23:56 650 MG Levothyroxine Sodium 50 mcg QAM@0600 PO 11/17/24 06:00 11/18/24 05:56 50 MCG Atorvastatin Calcium 40 mg HS PO 11/16/24 22:00 11/17/24 21:25 40 MG Amlodipine Besylate 10 mg DAILY PO 11/17/24 10:00 Lactated Ringer's 1,000 ml @ 75 mls/hr [id number] IV 11/17/24 12:45 Examination General: Patient alert and oriented in person, place and time. Patient following commands. HEENT: Normocephalic, atraumatic, moist mucous membranes Respiratory/pulmonary: Clear lungs bilaterally, vesicular murmurs present in almost all lung arroyo, no associated crackles or wheezes. Cardiovascular: Normal heart sounds S1 and S2 with no associated murmurs Abdomen: Liver palpable below the costal margin. No palpable masses. Extremities: Left knee- stitches from knee replacement surgery. Surgical incision site clean, dry, no sign of infection. Peripheral Pulses: 3+ Radial (R). 3+ Radial (L). 3+ Dorsalis pedis (R). 3+ Dorsalis pedis(L) Skin: No rashes or pruritus, there is no sacral edema present at this time. Neurological: Right hand tremor. Power normal. : Dalal catheter in place, draining dark colored urine. laboratory and microbiology Laboratory Tests 11/18/24 05:47 Test 11/18/24 05:47 Range/Units Serum Glucose 79 74-106 mg/dL Microbiology Date/Time Source Procedure Growth Status 11/16/24 13:30 Blood Blood Culture - Preliminary NO GROWTH AFTER 48 HOURS OF INCUBATION. Resulted 11/16/24 13:23 Voided Urine Urine Culture - Preliminary Resulted Problem List/Assessment/Plan Problem List/Assessment/Plan #Syncopal episode due to below #Postural hypotension #Orthostatic hypotension possible #Iatrogenic hypotension #Postural orthostasis -Troponins negative -CT head shows encephalomalacia in the right frontal lobe, may be sequelae of chronic infarct. Correlate with clinical findings. Prominent calcification along the right side of the falx cerebri, may be physiologic calcification. Calcified meningioma not excluded. Correlate with clinical findings. If clinically indicated, MRI without and with contrast could be obtained. -Chest x-ray WNL -EKG shows: Left anterior fascicular block, abnormal R-wave progression, borderline prolonged QT interval -Orthostatic vitals:- Lying down 165/83 Sitting 153/87 Standing 114/70 -Continue IV fluids. Amlodipine held, targeting SBP 150 -Arnold hose stocking #Ruling out arrhythmia -Patient is started on tele -We will do echo to rule out structural causes #Possible hypotension due to acute complicated cystitis -U/a shows: WBC 36, U. glucose, protein, ketone, blood 1+ -Increased BUN, BUN-creatinine ratio -Continue IV ceftriaxone -Continue Zofran #Hypertension #Hypothyroidism -Taking levothyroxine -Targeting SBP 150 in context of orthostatic hypotension #BPH #Diabetes mellitus -We will continue holding Farxiga -Continue on sliding scale insulin Goals of care discussed with the patient at bedside for more than 25 minute Full code Plan discussed with Dr. Terrazas Plan discussed with: Patient My Orders My Orders Orders - TASHI ALCARAZ Procedure Category Date Status Time * Coater Hand CONS 11/18/24 Transmitted Consult TASHI ALCARAZ Nov 18, 2024 17:23
[2024-11-18 21:37] VITALS: BP_SYST 115; BP_SYST 122; BP_SYST 163; BP_DIAS 73; BP_DIAS 89; PULSE 76; RESP 16; TEMP 97.9; O2SAT 94
[2024-11-19 01:00] VITALS: BP_SYST 0; BP_SYST 142; BP_DIAS 81; PULSE 79; RESP 16; TEMP 97.8; O2SAT 94
[2024-11-19 05:00] VITALS: BP_SYST 135; BP_SYST 158; BP_DIAS 86; BP_DIAS 89; PULSE 82; PULSE 94; RESP 15; RESP 16; TEMP 97.9; TEMP 98; O2SAT 95
--- NOTE | 2024-11-19 08:41 | ECG ---
[facility] Test Date: 2024-11-18 Test Time: 10:55:06 Pat Name: BOUCHRA GUILD Department: Room: 0277 B Gender: M Outdoor Guide: : 1950 Requested By: JUAN HASKINS Order Number: [id number] Reading MD: Ian Antony Measurements Intervals [place] Rate: 99 P: 52 DE: 187 QRS: -62 QRSD: 107 T: 56 QT: 368 QTc: 473 Interpretive Statements Sinus rhythm Left anterior fascicular block Low voltage, precordial leads Consider anterior infarct Electronically Signed On 11-21-2024 21:33:02 PDT by Ian Antony Please click the below link to view image of tracing.
[2024-11-19 09:00] VITALS: BP 169/95; PULSE 78; RESP 20; TEMP 98.4; O2SAT 94
[2024-11-19 09:17] LABS: Sodium 142 mmol/L (136-145)
[2024-11-19 09:18] LABS: Anion Gap 11 (5-15); Calcium 9.8 mg/dL (8.7-10.4); Carbon Dioxide 24 mmol/L (20-31)
[2024-11-19 09:23] LABS: BUN/Creatinine Ratio 19.5 (10.0-20.0); Blood Urea Nitrogen 17 mg/dL (9-23); Glucose 105 mg/dL (74-106)
[2024-11-19 09:30] LABS: Chloride 107 mmol/L (98-107); Potassium 3.3 mmol/L (3.5-5.1)
[2024-11-19 09:35] VITALS: BP_SYST 118; BP_SYST 135; BP_SYST 169; BP_DIAS 81; BP_DIAS 88; BP_DIAS 95; PULSE 100; PULSE 78; PULSE 89
[2024-11-19] MEDS: MAGNESIUM SULFATE 1GM/100ML 100 ML IV SCH (12:43)
[2024-11-19] MEDS: POTASSIUM EFFERVESENT TAB 25 MEQ PO ONE (12:43)
[2024-11-19] MEDS: FLUCONAZOLE 100 MG TAB PO SCH (12:43)
[2024-11-19 13:00] VITALS: BP 158/93; PULSE 20; PULSE 81; TEMP 98.6; O2SAT 96
[2024-11-19] MEDS ORDERED: CEPH250C PO (14:44)
[2024-11-19 14:50] VITALS: TEMP 37
--- NOTE | 2024-11-19 16:50 | DVHDSRES ---
Discharge Summary Date of Admission Resident Creating Document: FLORENCE HERNANDEZ RESIDENT Nov 16, 2024 at 19:04 Date of Discharge: Nov 19, 2024 Admitting Diagnosis Syncope Wounds: No wounds on admission. Labs/Diagnostic Data: Laboratory Results Test 11/19/24 12:35 11/19/24 08:27 11/18/24 05:47 11/17/24 05:45 POC Glucose 98 mg/dl (70-106) Sodium Level 142 mmol/L (136-145) Potassium Level 3.3 mmol/L (3.5-5.1) Chloride Level 107 mmol/L (98-107) Carbon Dioxide Level 24 mmol/L (20-31) Anion Gap 11 (5-15) Blood Urea Nitrogen 17 mg/dL (9-23) Creatinine 0.87 mg/dL (0.700-1.30) Glomerular Filtration Rate Calc 89 mL/min (>90) BUN/Creatinine Ratio 19.5 (10.0-20.0) Serum Glucose 105 mg/dL (74-106) Calcium Level 9.8 mg/dL (8.7-10.4) Magnesium Level 1.6 mg/dL (1.6-2.6) White Blood Count 9.9 10^3/uL (4.4-10.8) Red Blood Count 3.86 10^6/uL (4.5-5.90) Hemoglobin 11.9 g/dL (13.5-17.5) Hematocrit 34.7 % (41.0-53.0) Mean Corpuscular Volume 90.1 fL (80.0-100.0) Mean Corpuscular Hemoglobin 30.9 pg (28.0-32.0) Mean Corpuscular Hemoglobin Concent 34.3 g/dL (32.0-36.0) Red Cell Distribution Width 14.2 % (11.8-14.3) Platelet Count 397 10^3/uL (140-450) Mean Platelet Volume 7.6 fL (6.9-10.8) Neutrophils (%) (Auto) 72.1 % (37.0-80.0) Lymphocytes (%) (Auto) 14.4 % (10.0-50.0) Monocytes (%) (Auto) 8.6 % (0.0-12.0) Eosinophils (%) (Auto) 4.3 % (0.0-7.0) Basophils (%) (Auto) 0.6 % (0.0-2.0) Neutrophils # (Auto) 7.2 10 ^3/uL (1.6-8.6) Lymphocytes # (Auto) 1.4 10 ^3/uL (0.4-5.4) Monocytes # (Auto) 0.9 10 ^3/uL (0-1.3) Eosinophils # (Auto) 0.4 10 ^3/uL (0-0.8) Basophils # (Auto) 0.1 10 ^3/uL (0-0.2) Nucleated Red Blood Cells 0.0 % Total Bilirubin 0.9 mg/dL (0.2-1.0) Aspartate Amino Transferase (AST) 19 U/L (13-40) Alanine Aminotransferase (ALT) < 9 U/L (7-40) Alkaline Phosphatase 80 U/L (46-116) Total Protein 6.7 g/dL (5.7-8.2) Albumin 3.9 g/dL (3.2-4.8) Hemoglobin A1c 5.9 % A1C (<5.7) Thyroid Stimulating Hormone (TSH) 1.70 uIU/mL (0.55-4.78) Free Thyroxine (T4) Calculated 1.26 ng/dL (0.89-1.76) Test 11/16/24 16:40 11/16/24 13:30 11/16/24 13:23 Troponin I High Sensitivity 27 ng/L (</=54) Prothrombin Time 14.6 sec (9.3-11.8) Prothrombin Time INR 1.43 (0.9-1.15) Activated Partial Thromboplast Time 35.0 SEC (24.5-34.5) Lactic Acid Level 1.4 mmol/L (0.4-2.0) B-Type Natriuretic Peptide 50.61 pg/mL (0-100) Urine Color Light-yellow (Yellow) Urine Clarity Clear (Clear) Urine pH 6.5 (5.0-9.0) Urine Specific [place] 1.015 (1.001-1.035) Urine Protein 1+ (Negative) Urine Ketones 1+ (Negative) Urine Blood 1+ /uL (Negative) Urine Nitrite Negative (Negative) Urine Bilirubin Negative (Negative) Urine Urobilinogen 3 mg/dL (Negative) Urine Leukocyte Esterase 2+ /uL (Negative) Urine RBC 36 /hpf (0 - 3) Urine Microscopic WBC 34 /HPF (0-3) Urine Squamous Epithelial Cells Few /hpf (<5) Urine Bacteria None seen /hpf (None Seen) Urine Hyaline Casts Few /lpf (0 - 2) Urine Mucus Few (None Seen) Urine Glucose 4+ mg/dL (Normal) Other Laboratory Tests 11/19/24 08:27 11/18/24 05:47 Brief Hx & Hospital Course: PHI: Tigre Hurt this is a 74-year-old male with past medical history of diabetes mellitus, hypertension, left knee replacement, history of polio as a child. He came to the emergency department with a chief complaint of dizziness and loss of consciousness, when he went to the bathroom he started feeling dizzy. He complained everything around him looked hazy. In the restroom he felt more dizzy and EMT was called. He lost consciousness eventually and can not remember the episode clearly. Last week he reports undergoing left knee replacement for pain due to osteoarthritis. He reports, in a comprehensive cardiac evaluation done before the surgery showed atherosclerotic stenosis in one of the coronary arteries. A urinary catheter was left in place. He started experiencing burning micturition 2 days ago. No associated fever, nausea, vomiting, pain. He had constipation on and off for which he uses laxatives. He also had urge incontinence, which progressed to incontinence with this episode of UTI. Initial labs showed UTI, a urine culture was requested and the patient was started on antibiotics: Ceftriaxone 1gr. Admission course: During his first day of admission he had an episode of dizziness when performing orthostatic vitals, the blood pressure was positive for orthostatic hypotension. Compression socking were requested, this improved his symptoms. On his second day of admission, the patient reported no episodes of dizziness and feeling better. Dalal catheter was discontinued. The urine culture reported Michelle albicans, and diflucan oral was started. Today, Patient reported improvement of symptoms and he will be discharged home. The patient will follow up in the discharge clinic. ROS: Constitutional: Denies weight loss, fever and chills. HEENT: Denies changes in vision and hearing. Respiratory: Denies shortness of breath and cough Cardiovascular: Denies chest discomfort or palpitations GI: Constipation off and on. Denies abdominal pain, nausea, vomiting and diarrhea. : no dysuria, no burning pain. Musculoskeletal: Denies myalgias and joint pain Skin: Denies rash and pruritus. Neurological: Dizziness, loss of consciousness Examination on the day of discharge General: Patient alert and oriented in person, place and time. Patient following commands. HEENT: Normocephalic, atraumatic, moist mucous membranes Respiratory/pulmonary: Clear lungs bilaterally, vesicular murmurs present in almost all lung [place]roy[place], no associated crackles or wheezes. Cardiovascular: Normal heart sounds S1 and S2 with no associated murmurs Abdomen: Soft, depressible, no tender. No palpable masses. GI: no pelvic pain, no costovertebral tenderness. Extremities: Left knee- stitches from knee replacement surgery. Surgical incision site clean, dry, no sign of infection. Peripheral Pulses: 3+ Radial (R). 3+ Radial (L). 3+ Dorsalis pedis (R). 3+ Dorsalis pedis(L) Skin: No rashes or pruritus, there is no sacral edema present at this time. Neurological: Right hand tremor. Strength normal. Problem List/Assessment/Plan #Syncopal episode due possible Postural orthostasis -Orthostatic hypotension possible - Possible Iatrogenic hypotension #Postural orthostasis #Possible hypotension due to acute complicated cystitis #UTI #Hypertension #Hypothyroidism #BPH #Diabetes mellitus Discharge Plan: Cardiac diet. Keflex 500 mg po bid x 5 days Continue Compressive stockings F/U with discharge clinic in 1 week Continue with home medications Goals of care discussed with the patient and his for 20 minutes; Code status: Full code Plan discussed with Dr. Mejia. Plan discussed with: Patient, patients agrees with the discharge plan. Condition at Discharge: Stable Final Diagnosis/Problems List #Syncopal episode due Postural orthostasis/ hypotension #Postural hypotension/orthostasis #Possible hypotension due to acute complicated cystitis #UTI #Hypertension #Hypothyroidism #BPH #Diabetes mellitus #Possible hypotension due to acute complicated cystitis #Hypertension #Hypothyroidism #BPH #Diabetes mellitus Discharge Disposition: Home SNF Discharge Will this Physician continue t: No Discharge Instruct/Medications Diet: Cardiac 2g Na,low cholest, See Comment Diet comment: Low Carbohydrate diet Cardiac diet Activity: No Restrictions, As Tolerated Activity comment: Please use sal stocking before standing up. Follow Up/Referral: Follow up in the discharge clinic in one week Medications: Continue home medications Scheduled Atorvastatin Calcium (Atorvastatin Calcium), 1 TAB PO DAILY, (Reported) Cephalexin (Keflex Capsule), 500 MG PO BID Levothyroxine Sodium (Synthroid), 1 TAB PO DAILY, (Reported) Lisinopril (Lisinopril), 1 TAB PO DAILY, (Reported) Discontinued Medications Acetaminophen (Tylenol Extra Strength), 500 MG PO BID, (Reported) Discharge Statement: "Patient was advised to return to the ER or call 911 if any headaches, dizziness, shortness of breath, chest pain, abdominal pain, bleeding, fevers, or worsening of medical condition. Patient was counseled about treatment plan, medications, possible side effects, patientverbalized understanding. All questions were answered to the best of my ability. This discharge took greater then 30 minutes in planning, reviewing documentation, counseling the patient, and discussing with other team members." ASSESSMENT ASSESSMENT Assessment Orthostatic Hypotension Postural Hypotension BPH UTI DM2 Hypertension Addendum Addendum Addendum I was physically present for the carlos portions of the service provided to patient by THE RESIDENT. I have reviewed the documentation, discussed the case with resident and agree with the resident's documentation except as noted. Also the patient's clinical case was discussed with the patient's nurse. This medical document was created using an electronic medical record system with computerized dictation system. Although this document has been carefully reviewed, there might still be some phonetic and typographical errors. These areas are purely typographical due to imperfections of the software programs, and do not reflect any compromise in the patient's medical care. Late signature. Date of Service: Nov 19, 2024 Billing Provider: RED MEJIA MD Common Visit Codes: 38453-JOF/OBS DISCH DAY >30min Secondary Visit Codes: 07914-IKCRFXML CARE PLAN 30 MINUTES (20 minutes) FLORENCE HERNANDEZ Nov 19, 2024 16:50 RED MEJIA MD Nov 20, 2024 13:50
--- NOTE | 2024-11-21 12:00 | DVHSR ---
APPROVED REPORT EXAM: Two-dimensional and M-mode echocardiogram with Doppler and color Doppler. Blood Pressure: 123/75 mmHg INDICATION Syncope RISK FACTORS Height: 6'2", Weight: 260 DIMENSIONS LVDd4.3 (3.8-5.7cm)LA (2D)3.9 (1.9-4.0cm)Aortic Root3.6 (2.0-3.7cm) LVDs2.8 (2.5-4.0cm)LA (MM) (1.9-4.0cm)Aortic Cusp Exc1.4 (1.5-2.0cm) EF (%) 63.0 (55-70%)Rt. Atrium (1.9-4.0cm)Asc. Aorta3.6 cm IVSd1.2 (0.7-1.1cm)RV (D) (1.8-2.4cm) PWd0.9 (0.7-1.1cm) Mitral Valve MitralMitral Stenosis E wave0.48m/sMV Mean GR.mmHg A wave0.86m/sMV Peak GR.mmHg E/A ratio0.62D MVAcm2 DECEL [id number] 1/2 [place] Aortic Valve Aortic ValveAortic Stenosis V11.23m/Dani Mean GR.5mmHg V21.43m/Dani Peak GR.8mmHg LVOT Diameter2.1 (1.8-2.4cm)Doppler AVA2.98cm2 2D AVA2.52cm2 Pulmonic Valve V21.66m/s Other Information Quality : Technically LimitedRhythm : Technically limited study due to body habitus. Conclusion lvef 65% moderate LVH no severe valve abnormalities noted aortic valve sclerosis noted normal pericardium
== END 2024-11-19 16:11 | disposition home health service (06) | DRG 690 ==
LOC: ER 12:41 → EDBD 12:41 → OVERFLOW 19:04 → WEST WING 19:09
PROVIDERS: ADMIT Student in an Organized Health Care Education/Training Program; ATTEND Emergency Medicine
DX: N30.00 Acute cystitis without hematuria (principal); G93.89 Other specified disorders of brain; E11.9 Type 2 diabetes mellitus without complications; I10 Essential (primary) hypertension; E03.9 Hypothyroidism, unspecified; N40.0 Benign prostatic hyperplasia without lower urinary tract symptoms; E78.5 Hyperlipidemia, unspecified; I95.1 Orthostatic hypotension; Z96.652 Presence of left artificial knee joint; Z86.12 Personal history of poliomyelitis; Z79.890 Hormone replacement therapy
CPT/HCPCS: 36415; 70450; 71045; 80048; 80053; 81001; 82962; 83036; 83605; 83735; 83880; 84439; 84443; 84484; 85025; 85610; 85730; 87040; 87086; 87088; 93005; 93306; 96361; 96365; 97110; 97116; 97163; 97530; G0378; J2405